=== PATIENT | male | born 2000 | race Caucasian/White ===

== ENCOUNTER 2023-03-16 16:20 | Emergency (ER) | payer SELFPAY ==
[~2023-03-16] VITALS: Wt 95.3 kg
[2023-03-16] MEDS ORDERED: MEDROL DOSEPAK4 MG PO (19:38)
== END 2023-03-16 19:50 | disposition home or self-care (01) ==
LOC: ED 16:20
DX: H60.91 Unspecified otitis externa, right ear (principal); H61.22 Impacted cerumen, left ear; H65.92 Unspecified nonsuppurative otitis media, left ear; Z88.1 Allergy status to other antibiotic agents

== ENCOUNTER 2023-03-31 16:17 | Emergency (ER) | payer SELFPAY ==
[~2023-03-31] VITALS: Ht 200.6 cm; Wt 95.3 kg
[~2023-03-31 16:17] MED LIST: MEDROL DOSEPAK4 MG PO
== END 2023-03-31 17:21 | disposition home or self-care (01) ==
LOC: ED 16:17
DX: R56.9 Unspecified convulsions (principal); R51.9 Headache, unspecified; M54.2 Cervicalgia; Z88.1 Allergy status to other antibiotic agents

== ENCOUNTER 2024-02-29 18:08 | Emergency (ER) | payer SELFPAY ==
[~2024-02-29] VITALS: Ht 200.6 cm; Wt 95.3 kg
[2024-02-29] MEDS ORDERED: SODIUM CHLORIDE 0.9% 1,000 ML IV ONE (18:25)
[2024-02-29] MEDS ORDERED: Ketorolac Tromethamine 30 MG/ML VIAL IV ONE (18:25)
[2024-02-29] MEDS ORDERED: Ondansetron Hydrochloride 4 MG/2 ML VIAL IV ONE (18:25)
[2024-02-29 18:37] LABS: BASO % 0.4 % (0.0-1.0); EOS % 0.8 % (1.0-4.0); HEMATOCRIT 41.6 % (42.0-52.0); LYMPH # 1.6 10*3/uL (1.3-4.4); LYMPH % 32.5 % (27.0-41.0); MEAN CELL VOLUME 81.4 fl (80.0-94.0); MEAN CORPUSCULAR HGB 26.8 pg (27.0-31.0); MEAN CORPUSCULAR HGB CONC 32.9 g/dl (33.0-37.0); MEAN PLATELET VOLUME 10.6 fl (9.6-12.3); MONO # 0.3 10*3/uL (0.1-1.0); MONO % 6.5 % (3.0-9.0); NEUT % 59.6 % (47.0-73.0); PLATELET COUNT AUTOMATED 146 10*3/uL (130-400); RED BLOOD COUNT 5.11 10*6/uL (4.50-5.90); RED CELL DISTRI WIDTH 14.5 % (0-14.5)
[2024-02-29] MEDS ORDERED: IOHEXOL 300 MG/ML 100 ML VIAL IV ONE (18:40)
[2024-02-29 18:53] LABS: ALKALINE PHOSPHATASE 75 U/L (46-116); BUN 13 mg/dl (9-23); CHLORIDE 107 mmol/L (98-107); LIPASE 30 U/L (12-53); POTASSIUM 3.9 mmol/L (3.4-5.1); SGPT/ALT 20 U/L (5-49); TOTAL PROTEIN 6.9 gm/dL (6.0-8.0)
== END 2024-02-29 20:48 | disposition home or self-care (01) ==
LOC: ED 18:08
PROVIDERS: Physician Assistant Medical
DX: R10.9 Unspecified abdominal pain (principal); K62.5 Hemorrhage of anus and rectum; R42 Dizziness and giddiness; Z88.1 Allergy status to other antibiotic agents

== ENCOUNTER 2024-04-06 21:03 | Emergency (ER) | payer OTHER ==
[~2024-04-06] VITALS: Ht 203.2 cm; Wt 93.0 kg
[2024-04-06] MEDS ORDERED: SODIUM CHLORIDE 0.9% 1,000 ML IV ONE ×2 (21:10→22:55)
[2024-04-06 21:21] LABS: BASO % 0.3 % (0.0-1.0); EOS % 0.4 % (1.0-4.0); HEMATOCRIT 40.9 % (42.0-52.0); LYMPH # 2.4 10*3/uL (1.3-4.4); LYMPH % 36.1 % (27.0-41.0); MEAN CELL VOLUME 82.6 fl (80.0-94.0); MEAN CORPUSCULAR HGB 26.9 pg (27.0-31.0); MEAN CORPUSCULAR HGB CONC 32.5 g/dl (33.0-37.0); MEAN PLATELET VOLUME 10.7 fl (9.6-12.3); MONO # 0.4 10*3/uL (0.1-1.0); MONO % 5.5 % (3.0-9.0); NEUT # 3.9 10*3/uL (2.3-7.9); NEUT % 57.4 % (47.0-73.0); PLATELET COUNT AUTOMATED 160 10*3/uL (130-400); RED BLOOD COUNT 4.95 10*6/uL (4.50-5.90); RED CELL DISTRI WIDTH 14.7 % (0-14.5); WHITE BLOOD COUNT 6.7 10*3/uL (4.8-10.8)
[2024-04-06] MEDS ORDERED: Ondansetron Hydrochloride 4 MG/2 ML VIAL IV ONE (21:35)
[2024-04-06 21:43] LABS: ALKALINE PHOSPHATASE 72 U/L (46-116); BUN 11 mg/dl (9-23); CHLORIDE 108 mmol/L (98-107); LIPASE 25 U/L (12-53); POTASSIUM 3.5 mmol/L (3.4-5.1); SGPT/ALT 51 U/L (5-49)
[2024-04-06] MEDS ORDERED: CIPROFLOXACIN 200 ML IV ONE (22:55)
[2024-04-06] MEDS ORDERED: METRONIDAZOLE 100 ML IV ONE (22:55)
[2024-04-07 00:27] LABS: BILIRUBIN Negative (Negative); BLOOD Negative (Negative); CLARITY Clear (Clear); COLOR Yellow (Yellow); GLUCOSE Negative (Negative); KETONE Trace (Negative); LEUKO ESTERASE Negative (Negative); NITRITE Negative (Negative); PH 6.5 (4.5-8.0)
[2024-04-07 00:35] LABS: URINE AMPHETAMINES Negative (1000ng/ml); URINE BARBITURATES Negative (200ng/ml); URINE BENZODIAZEPINES Negative (200ng/ml); URINE CANNABINOIDS (THC) Positive (50ng/ml); URINE COCAINE Negative (300ng/ml); URINE METHADONE Negative (300ng/ml); URINE OPIATES Negative (300ng/ml); URINE PHENCYCLIDINE Negative (25ng/ml)
[2024-04-07 00:45] LABS: MUCOUS 1+
[2024-04-07] MEDS ORDERED: SODIUM CHLORIDE 0.9% 1,000 ML IV ONE (01:00)
== END 2024-04-07 01:42 | disposition short-term general hospital (02) ==
LOC: ED 21:03
PROVIDERS: Internal Medicine
DX: K63.1 Perforation of intestine (nontraumatic) (principal); R79.89 Other specified abnormal findings of blood chemistry; Z88.1 Allergy status to other antibiotic agents

== ENCOUNTER 2024-04-18 18:34 | Emergency (ER) | payer OTHER ==
[~2024-04-18] VITALS: Ht 203.2 cm; Wt 95.3 kg
[2024-04-18] MEDS ORDERED: Ondansetron Hydrochloride 4 MG/2 ML VIAL IV ONE (19:15)
[2024-04-18] MEDS ORDERED: methylPREDNISolone sod succ 125 MG VIAL IV ONE (19:15)
[2024-04-18] MEDS ORDERED: HYDROmorphONE Hydrochloride 1 MG/ML SYR IV ONE (19:15)
[2024-04-18 19:23] LABS: BASO % 0.4 % (0.0-1.0); EOS % 0.8 % (1.0-4.0); HEMATOCRIT 40.4 % (42.0-52.0); LYMPH # 1.6 10*3/uL (1.3-4.4); LYMPH % 32.9 % (27.0-41.0); MEAN CELL VOLUME 82.8 fl (80.0-94.0); MEAN CORPUSCULAR HGB 26.8 pg (27.0-31.0); MEAN CORPUSCULAR HGB CONC 32.4 g/dl (33.0-37.0); MEAN PLATELET VOLUME 10.7 fl (9.6-12.3); MONO # 0.4 10*3/uL (0.1-1.0); MONO % 7.4 % (3.0-9.0); NEUT # 2.9 10*3/uL (2.3-7.9); NEUT % 58.3 % (47.0-73.0); PLATELET COUNT AUTOMATED 148 10*3/uL (130-400); RED BLOOD COUNT 4.88 10*6/uL (4.50-5.90); RED CELL DISTRI WIDTH 14.8 % (0-14.5)
[2024-04-18 19:44] LABS: ALKALINE PHOSPHATASE 72 U/L (46-116); BUN 8 mg/dl (9-23); CHLORIDE 107 mmol/L (98-107); LIPASE 30 U/L (12-53); POTASSIUM 3.9 mmol/L (3.4-5.1); SGPT/ALT 41 U/L (5-49); TOTAL PROTEIN 6.6 gm/dL (6.0-8.0)
[2024-04-18] MEDS ORDERED: PREDNISONE20 M1 PO (20:33)
== END 2024-04-18 20:39 | disposition home or self-care (01) ==
LOC: ED 18:34
PROVIDERS: Internal Medicine
DX: K50.90 Crohn's disease, unspecified, without complications (principal); Z88.1 Allergy status to other antibiotic agents; Z87.891 Personal history of nicotine dependence

== ENCOUNTER 2024-05-02 20:47 | Emergency (ER) | payer OTHER ==
[~2024-05-02 20:47] MED LIST changes: +PREDNISONE20 M1 PO
[2024-05-02] MEDS ORDERED: SODIUM CHLORIDE 0.9% 1,000 ML IV ONE (21:25)
[2024-05-02] MEDS ORDERED: HYDROmorphONE Hydrochloride 1 MG/ML SYR IV ONE (21:25)
[2024-05-02] MEDS ORDERED: Ondansetron Hydrochloride 4 MG/2 ML VIAL IV ONE (21:30)
[2024-05-02] MEDS ORDERED: Pantoprazole Sodium 40 MG VIAL IV ONE (21:30)
[2024-05-02 21:45] LABS: BASO % 0.4 % (0.0-1.0); EOS % 0.8 % (1.0-4.0); HEMATOCRIT 42.7 % (42.0-52.0); LYMPH # 1.9 10*3/uL (1.3-4.4); LYMPH % 36.5 % (27.0-41.0); MEAN CELL VOLUME 82.9 fl (80.0-94.0); MEAN CORPUSCULAR HGB 26.4 pg (27.0-31.0); MEAN CORPUSCULAR HGB CONC 31.9 g/dl (33.0-37.0); MEAN PLATELET VOLUME 10.3 fl (9.6-12.3); MONO # 0.4 10*3/uL (0.1-1.0); MONO % 7.9 % (3.0-9.0); NEUT # 2.9 10*3/uL (2.3-7.9); NEUT % 54.2 % (47.0-73.0); PLATELET COUNT AUTOMATED 157 10*3/uL (130-400); RED BLOOD COUNT 5.15 10*6/uL (4.50-5.90); RED CELL DISTRI WIDTH 14.7 % (0-14.5); WHITE BLOOD COUNT 5.3 10*3/uL (4.8-10.8)
[2024-05-02 21:57] LABS: ACT PARTIAL THROMBO TIME 28.1 SECONDS (20.0-32.1)
[2024-05-02 22:07] LABS: CPK 102 U/L (34-171)
[2024-05-02 22:08] LABS: ALKALINE PHOSPHATASE 75 U/L (46-116); BUN 15 mg/dl (9-23); CHLORIDE 107 mmol/L (98-107); LDH 129 U/L (120-246); LIPASE 35 U/L (12-53); POTASSIUM 3.8 mmol/L (3.4-5.1); SGPT/ALT 28 U/L (5-49); TOTAL PROTEIN 6.4 gm/dL (6.0-8.0)
[2024-05-02 22:12] LABS: ETHYL ALCOHOL < 3.0 mg/dl (<3)
[2024-05-02] MEDS ORDERED: SODIUM CHLORIDE 0.9% 10 ML SYR IV SCH (22:30)
[2024-05-02] MEDS ORDERED: IOHEXOL 300 MG/ML 100 ML VIAL IV ONE (22:30)
[2024-05-02] MEDS ORDERED: IOHEXOL 300 MG/ML 100 ML VIAL ONE (22:44)
[2024-05-03] MEDS ORDERED: HYDROmorphONE Hydrochloride 1 MG/ML SYR IV ONE (00:45)
[2024-05-03] MEDS ORDERED: Ondansetron4 MG PO (01:21)
[2024-05-03] MEDS ORDERED: PROTONIX40 MG PO (01:21)
== END 2024-05-03 01:18 | disposition home or self-care (01) ==
LOC: ED 20:47
PROVIDERS: Emergency Medicine
DX: K52.9 Noninfective gastroenteritis and colitis, unspecified (principal); K50.918 Crohn's disease, unspecified, with other complication; K92.2 Gastrointestinal hemorrhage, unspecified; R11.10 Vomiting, unspecified; Z88.1 Allergy status to other antibiotic agents; Z79.899 Other long term (current) drug therapy

== ENCOUNTER 2024-05-23 17:00 | Emergency (ER) | payer OTHER ==
[~2024-05-23] VITALS: Ht 203.2 cm; Wt 95.3 kg
[~2024-05-23 17:00] MED LIST changes: +Ondansetron4 MG PO; +PROTONIX40 MG PO
[2024-05-23] MEDS ORDERED: HYDROCODONE-AC1 EAC1 PO (17:20)
== END 2024-05-23 17:34 | disposition home or self-care (01) ==
LOC: ED 17:00
DX: K50.90 Crohn's disease, unspecified, without complications (principal); Z88.1 Allergy status to other antibiotic agents

== ENCOUNTER 2024-06-28 21:14 | Emergency (ER) | payer OTHER ==
[~2024-06-28] VITALS: Ht 195.5 cm; Wt 83.9 kg
[~2024-06-28 21:14] MED LIST changes: +HYDROCODONE-AC1 EAC1 PO
[2024-06-28] MEDS ORDERED: MEPERIDINE HYDROCHLORIDE 25 MG/1 ML VIAL IM ONE (22:20)
[2024-06-28] MEDS ORDERED: Promethazine Hydrochloride 25 MG/ML VIAL IM ONE (22:20)
[2024-06-28] MEDS ORDERED: methylPREDNISolone sod succ 125 MG VIAL IM ONE (22:20)
[2024-06-28 22:36] LABS: BASO % 0.1 % (0.0-1.0); EOS % 0.6 % (1.0-4.0); HEMATOCRIT 38.3 % (42.0-52.0); LYMPH # 1.9 10*3/uL (1.3-4.4); MEAN CELL VOLUME 82.7 fl (80.0-94.0); MEAN CORPUSCULAR HGB CONC 32.6 g/dl (33.0-37.0); MEAN PLATELET VOLUME 11.1 fl (9.6-12.3); MONO # 0.5 10*3/uL (0.1-1.0); MONO % 6.4 % (3.0-9.0); NEUT # 4.6 10*3/uL (2.3-7.9); NEUT % 65.6 % (47.0-73.0); PLATELET COUNT AUTOMATED 153 10*3/uL (130-400); RED BLOOD COUNT 4.63 10*6/uL (4.50-5.90); RED CELL DISTRI WIDTH 14.4 % (0-14.5); WHITE BLOOD COUNT 7.1 10*3/uL (4.8-10.8)
[2024-06-28 22:53] LABS: ALKALINE PHOSPHATASE 70 U/L (46-116); BUN 18 mg/dl (9-23); CHLORIDE 104 mmol/L (98-107); LIPASE 28 U/L (12-53); POTASSIUM 3.6 mmol/L (3.4-5.1); SGPT/ALT 53 U/L (5-49); TOTAL PROTEIN 6.3 gm/dL (6.0-8.0)
== END 2024-06-28 23:42 | disposition home or self-care (01) ==
LOC: ED 21:14
PROVIDERS: Internal Medicine
DX: K50.90 Crohn's disease, unspecified, without complications (principal); R79.89 Other specified abnormal findings of blood chemistry; Z88.1 Allergy status to other antibiotic agents

== ENCOUNTER 2024-07-14 21:25 | Emergency (ER) | payer OTHER ==
[~2024-07-14] VITALS: Ht 187.9 cm; Wt 95.3 kg
[2024-07-14] MEDS ORDERED: CLINDAMYCIN HC300 MG PO (22:06)
[2024-07-14] MEDS ORDERED: NAPROSYN500 MG PO (22:06)
[2024-07-14] MEDS ORDERED: Lidocaine Hydrochloride 15 ML UDC PO STA (22:08)
[2024-07-14] MEDS ORDERED: BENZOCAINE 20% 11.9 GM GEL T STA (22:08)
[2024-07-14] MEDS ORDERED: CLINDAMYCIN HCL 300 MG CAPSULE PO ONE (22:10)
[2024-07-14] MEDS ORDERED: Ketorolac Tromethamine 60 MG/2 ML VIAL IM ONE (22:10)
== END 2024-07-14 22:31 | disposition home or self-care (01) ==
LOC: ED 21:25
DX: K04.7 Periapical abscess without sinus (principal); Z88.1 Allergy status to other antibiotic agents

== ENCOUNTER 2024-07-16 15:25 | Emergency (ER) | payer OTHER ==
[~2024-07-16] VITALS: Ht 200.6 cm; Wt 95.3 kg
[~2024-07-16 15:25] MED LIST changes: +CLINDAMYCIN HC300 MG PO; +NAPROSYN500 MG PO
[2024-07-16] MEDS ORDERED: Acetaminophen/Hydrocodone 5 MG/325 MG TABLET PO ONE (15:55)
[2024-07-16] MEDS ORDERED: IOHEXOL 300 MG/ML 100 ML VIAL IV ONE (16:00)
[2024-07-16 16:25] LABS: BASO % 0.1 % (0.0-1.0); EOS % 0.4 % (1.0-4.0); HEMATOCRIT 39.5 % (42.0-52.0); MEAN CELL VOLUME 82.8 fl (80.0-94.0); MEAN CORPUSCULAR HGB 26.8 pg (27.0-31.0); MEAN CORPUSCULAR HGB CONC 32.4 g/dl (33.0-37.0); MEAN PLATELET VOLUME 10.4 fl (9.6-12.3); MONO # 0.6 10*3/uL (0.1-1.0); MONO % 8.1 % (3.0-9.0); NEUT # 5.5 10*3/uL (2.3-7.9); NEUT % 75.1 % (47.0-73.0); PLATELET COUNT AUTOMATED 156 10*3/uL (130-400); RED BLOOD COUNT 4.77 10*6/uL (4.50-5.90); RED CELL DISTRI WIDTH 14.2 % (0-14.5); WHITE BLOOD COUNT 7.3 10*3/uL (4.8-10.8)
[2024-07-16] MEDS ORDERED: BENZOCAINE 20% 11.9 GM GEL T STA (16:33)
[2024-07-16] MEDS ORDERED: Lidocaine Hydrochloride 15 ML UDC PO STA (16:33)
[2024-07-16 16:46] LABS: BUN 10 mg/dl (9-23); CHLORIDE 106 mmol/L (98-107); POTASSIUM 3.7 mmol/L (3.4-5.1)
[2024-07-16] MEDS ORDERED: Ketorolac Tromethamine 30 MG/ML VIAL IV ONE (18:00)
[2024-07-16] MEDS ORDERED: Clindamycin Phosphate 50 ML IV ONE (18:45)
== END 2024-07-16 19:31 | disposition home or self-care (01) ==
LOC: ED 15:25
PROVIDERS: Physician Assistant Medical
DX: K04.7 Periapical abscess without sinus (principal); F19.10 Other psychoactive substance abuse, uncomplicated; R22.0 Localized swelling, mass and lump, head; Z88.1 Allergy status to other antibiotic agents

== ENCOUNTER 2024-08-10 11:59 | Emergency (ER) | payer OTHER ==
[~2024-08-10] VITALS: Ht 200.6 cm; Wt 90.7 kg
[2024-08-10] MEDS ORDERED: fentaNYL CITRATE 100 MCG/2 ML VIAL IV ONE (12:30)
[2024-08-10] MEDS ORDERED: Pantoprazole Sodium 40 MG VIAL IV ONE (12:30)
[2024-08-10] MEDS ORDERED: Ondansetron Hydrochloride 4 MG/2 ML VIAL IV ONE (12:30)
[2024-08-10] MEDS ORDERED: SODIUM CHLORIDE 0.9% 1,000 ML IV ONE (12:30)
[2024-08-10 12:44] LABS: BASO % 0.2 % (0.0-1.0); EOS % 0.4 % (1.0-4.0); HEMATOCRIT 42.6 % (42.0-52.0); MEAN CELL VOLUME 81.9 fl (80.0-94.0); MEAN CORPUSCULAR HGB 26.3 pg (27.0-31.0); MEAN CORPUSCULAR HGB CONC 32.2 g/dl (33.0-37.0); MEAN PLATELET VOLUME 10.1 fl (9.6-12.3); MONO # 0.3 10*3/uL (0.1-1.0); MONO % 5.6 % (3.0-9.0); NEUT # 3.3 10*3/uL (2.3-7.9); NEUT % 67.5 % (47.0-73.0); PLATELET COUNT AUTOMATED 168 10*3/uL (130-400); RED CELL DISTRI WIDTH 14.2 % (0-14.5); WHITE BLOOD COUNT 4.8 10*3/uL (4.8-10.8)
[2024-08-10 12:59] LABS: ALKALINE PHOSPHATASE 89 U/L (46-116); BUN 11 mg/dl (9-23); CHLORIDE 105 mmol/L (98-107); LIPASE 31 U/L (12-53); POTASSIUM 3.9 mmol/L (3.4-5.1); SGPT/ALT 23 U/L (5-49); TOTAL PROTEIN 7.6 gm/dL (6.0-8.0)
[2024-08-10] MEDS ORDERED: IOHEXOL 300 MG/ML 100 ML VIAL IV ONE (13:25)
[2024-08-10] MEDS ORDERED: PREDNISONE20 M1 PO (14:39)
[2024-08-10] MEDS ORDERED: methylPREDNISolone sod succ 125 MG VIAL IV ONE (14:40)
== END 2024-08-10 14:50 | disposition home or self-care (01) ==
LOC: ED 11:59
PROVIDERS: Nurse Practitioner Family
DX: K50.90 Crohn's disease, unspecified, without complications (principal); Z88.1 Allergy status to other antibiotic agents; Z79.899 Other long term (current) drug therapy; G40.909 Epilepsy, unspecified, not intractable, without status epilepticus

== ENCOUNTER 2024-10-19 02:31 | Emergency (ER) | payer OTHER ==
[~2024-10-19] VITALS: Ht 200.6 cm; Wt 87.1 kg
[2024-10-19 03:08] LABS: BASO % 0.2 % (0.0-1.0); EOS # 0.1 10*3/uL (0.0-0.4); HEMATOCRIT 42.1 % (42.0-52.0); MEAN CELL VOLUME 82.2 fl (80.0-94.0); MEAN CORPUSCULAR HGB 26.6 pg (27.0-31.0); MEAN CORPUSCULAR HGB CONC 32.3 g/dl (33.0-37.0); MEAN PLATELET VOLUME 10.6 fl (9.6-12.3); MONO # 0.4 10*3/uL (0.1-1.0); MONO % 8.3 % (3.0-9.0); NEUT # 2.3 10*3/uL (2.3-7.9); NEUT % 45.6 % (47.0-73.0); PLATELET COUNT AUTOMATED 164 10*3/uL (130-400); RED BLOOD COUNT 5.12 10*6/uL (4.50-5.90); RED CELL DISTRI WIDTH 14.1 % (0-14.5); WHITE BLOOD COUNT 5.1 10*3/uL (4.8-10.8)
[2024-10-19 03:29] LABS: ALKALINE PHOSPHATASE 72 U/L (46-116); BUN 15 mg/dl (9-23); CHLORIDE 104 mmol/L (98-107); LIPASE 37 U/L (12-53); POTASSIUM 4.2 mmol/L (3.4-5.1); SGPT/ALT 27 U/L (5-49); TOTAL PROTEIN 6.8 gm/dL (6.0-8.0)
[2024-10-19] MEDS ORDERED: HYDROmorphONE Hydrochloride 0.5 MG/0.5 ML SYRINGE IV ONE (03:35)
[2024-10-19] MEDS ORDERED: Ondansetron Hydrochloride 4 MG/2 ML VIAL IV ONE (03:35)
[2024-10-19] MEDS ORDERED: methylPREDNISolone sod succ 125 MG VIAL IV ONE (05:15)
== END 2024-10-19 06:19 | disposition home or self-care (01) ==
LOC: ED 02:31
PROVIDERS: Internal Medicine
DX: K50.90 Crohn's disease, unspecified, without complications (principal); K92.1 Melena; R11.2 Nausea with vomiting, unspecified; Z88.1 Allergy status to other antibiotic agents

== ENCOUNTER 2024-11-29 11:49 | Emergency (ER) | payer OTHER ==
[~2024-11-29] VITALS: Ht 203.2 cm; Wt 92.6 kg
[2024-11-29] MEDS ORDERED: AVPAK AZITHROM250 M1 PO (12:33)
[2024-11-29] MEDS ORDERED: AZITHROMYCIN 250 MG TAB PO ONE (12:35)
[2024-11-29] MEDS ORDERED: methylPREDNISolone sod succ 125 MG VIAL IM ONE (12:35)
== END 2024-11-29 13:15 | disposition home or self-care (01) ==
LOC: ED 11:49
DX: J20.9 Acute bronchitis, unspecified (principal); K50.90 Crohn's disease, unspecified, without complications; Z79.899 Other long term (current) drug therapy; Z88.0 Allergy status to penicillin

== ENCOUNTER 2024-12-01 08:34 | Emergency (ER) | payer OTHER ==
[~2024-12-01] VITALS: Ht 203.2 cm; Wt 95.3 kg
[~2024-12-01 08:34] MED LIST changes: +AVPAK AZITHROM250 M1 PO
[2024-12-01] MEDS ORDERED: Ondansetron Hydrochloride 4 MG/2 ML VIAL IV ONE (08:50)
[2024-12-01] MEDS ORDERED: SODIUM CHLORIDE 0.9% 1,000 ML IV ONE (08:50)
[2024-12-01] MEDS ORDERED: MORPHINE Sulfate 2 MG/ML SYR IV ONE (08:50)
[2024-12-01] MEDS ORDERED: methylPREDNISolone sod succ 125 MG VIAL IV ONE (08:50)
[2024-12-01 09:05] LABS: BASO % 0.2 % (0.0-1.0); EOS % 0.5 % (1.0-4.0); HEMATOCRIT 39.2 % (42.0-52.0); MEAN CELL VOLUME 80.8 fl (80.0-94.0); MEAN CORPUSCULAR HGB 26.8 pg (27.0-31.0); MEAN CORPUSCULAR HGB CONC 33.2 g/dl (33.0-37.0); MEAN PLATELET VOLUME 10.4 fl (9.6-12.3); MONO # 0.6 10*3/uL (0.1-1.0); MONO % 8.6 % (3.0-9.0); PLATELET COUNT AUTOMATED 141 10*3/uL (130-400); RED BLOOD COUNT 4.85 10*6/uL (4.50-5.90); RED CELL DISTRI WIDTH 14.2 % (0-14.5); WHITE BLOOD COUNT 6.4 10*3/uL (4.8-10.8)
[2024-12-01] MEDS ORDERED: IOHEXOL 300 MG/ML 100 ML VIAL IV ONE (09:25)
[2024-12-01 09:26] LABS: BUN 24 mg/dl (9-23); CHLORIDE 106 mmol/L (98-107); POTASSIUM 3.5 mmol/L (3.4-5.1)
[2024-12-01] MEDS ORDERED: PREDNISONE10 M1 PO (12:32)
== END 2024-12-01 12:37 | disposition home or self-care (01) ==
LOC: ED 08:34
PROVIDERS: Emergency Medicine
DX: K50.90 Crohn's disease, unspecified, without complications (principal); R11.2 Nausea with vomiting, unspecified; G40.909 Epilepsy, unspecified, not intractable, without status epilepticus; Z88.1 Allergy status to other antibiotic agents

== ENCOUNTER 2025-02-06 06:09 | Emergency (ER) | payer OTHER ==
[~2025-02-06] VITALS: Ht 203.2 cm; Wt 77.1 kg
[~2025-02-06 06:09] MED LIST changes: +PREDNISONE10 M1 PO
[2025-02-06] MEDS ORDERED: methylPREDNISolone sod succ 125 MG VIAL IV ONE (06:25)
[2025-02-06] MEDS ORDERED: SODIUM CHLORIDE 0.9% 1,000 ML IV ONE (06:25)
[2025-02-06] MEDS ORDERED: HYDROmorphone Hydrochloride 1 MG/ML SYR IV ONE ×2 (06:25→07:35)
[2025-02-06] MEDS ORDERED: Ondansetron Hydrochloride 4 MG/2 ML VIAL IV ONE (06:25)
[2025-02-06 06:44] LABS: BASO % 0.5 % (0.0-1.0); EOS % 0.9 % (1.0-4.0); HEMATOCRIT 41.9 % (42.0-52.0); MEAN CELL VOLUME 79.4 fl (80.0-94.0); MEAN CORPUSCULAR HGB 26.3 pg (27.0-31.0); MEAN CORPUSCULAR HGB CONC 33.2 g/dl (33.0-37.0); MEAN PLATELET VOLUME 10.9 fl (9.6-12.3); MONO # 0.4 10*3/uL (0.1-1.0); MONO % 8.4 % (3.0-9.0); NEUT # 2.1 10*3/uL (2.3-7.9); NEUT % 47.6 % (47.0-73.0); PLATELET COUNT AUTOMATED 149 10*3/uL (130-400); RED BLOOD COUNT 5.28 10*6/uL (4.50-5.90); RED CELL DISTRI WIDTH 14.6 % (0-14.5); WHITE BLOOD COUNT 4.4 10*3/uL (4.8-10.8)
[2025-02-06 06:55] LABS: ALKALINE PHOSPHATASE 73 U/L (46-116); BUN 14 mg/dl (9-23); CHLORIDE 106 mmol/L (98-107); LIPASE 31 U/L (12-53); POTASSIUM 3.8 mmol/L (3.4-5.1); SGPT/ALT 22 U/L (5-49); TOTAL PROTEIN 7.1 gm/dL (6.0-8.0)
[2025-02-06] MEDS ORDERED: Pantoprazole Sodium 40 MG VIAL IV ONE (07:35)
[2025-02-06] MEDS ORDERED: Pantoprazole Sodium 40 MG IV ONE (07:35)
[2025-02-06] MEDS ORDERED: PROTONIX40 MG PO (08:17)
[2025-02-06] MEDS ORDERED: ANUSOL-HC25 MG R (08:17)
[2025-02-06] MEDS ORDERED: ENDOCET 5-3251 EACH PO (08:17)
== END 2025-02-06 08:37 | disposition home or self-care (01) ==
LOC: ED 06:09
PROVIDERS: Internal Medicine
DX: K64.9 Unspecified hemorrhoids (principal); K29.70 Gastritis, unspecified, without bleeding; R11.2 Nausea with vomiting, unspecified; R42 Dizziness and giddiness; R19.7 Diarrhea, unspecified; Z88.1 Allergy status to other antibiotic agents; Z79.899 Other long term (current) drug therapy

== ENCOUNTER 2025-03-22 06:11 | Emergency (ER) | payer OTHER ==
[~2025-03-22 06:11] MED LIST changes: +ANUSOL-HC25 MG R; +ENDOCET 5-3251 EACH PO
[2025-03-22 06:46] LABS: BASO # 0.0 10*3/uL (0.0-0.1); BASO % 0.2 % (0.0-1.0); EOS # 0.1 10*3/uL (0.0-0.4); EOS % 1.0 % (1.0-4.0); MEAN CELL VOLUME 84.8 fl (80.0-94.0); MEAN CORPUSCULAR HGB 26.6 pg (27.0-31.0); MEAN PLATELET VOLUME 10.9 fl (9.6-12.3); MONO # 0.3 10*3/uL (0.1-1.0); MONO % 6.6 % (3.0-9.0); NEUT # 2.3 10*3/uL (2.3-7.9); NEUT % 44.8 % (47.0-73.0); NUCLEATED RED BLOOD CELL 0.0 % (0.0-0.0); NUCLEATED RED BLOOD CELL 0.0 10*3/uL (0.0-0.0); PLATELET COUNT AUTOMATED 159 10*3/uL (130-400); RED CELL DISTRI WIDTH 14.6 % (0-14.5)
[2025-03-22] MEDS ORDERED: Ondansetron Hydrochloride 4 MG TAB SL ONE (06:55)
[2025-03-22] MEDS ORDERED: Acetaminophen/Hydrocodone 5 MG/325 MG TABLET PO ONE (06:55)
[2025-03-22 07:18] LABS: BUN 14 mg/dl (9-23)
[2025-03-22] MEDS ORDERED: SODIUM CHLORIDE 0.9% 1,000 ML IV ONE (07:55)
[2025-03-22] MEDS ORDERED: METHOCARBAMOL 500 MG TAB PO ONE (07:55)
[2025-03-22] MEDS ORDERED: NAPROSYN500 MG PO (09:32)
[2025-03-22] MEDS ORDERED: METHOCARBAMOL500 M1 PO (09:32)
== END 2025-03-22 09:39 | disposition home or self-care (01) ==
LOC: ED 06:11
PROVIDERS: Internal Medicine
DX: M25.511 Pain in right shoulder (principal); R51.9 Headache, unspecified; Z79.899 Other long term (current) drug therapy; Z88.1 Allergy status to other antibiotic agents; W18.39XA Other fall on same level, initial encounter; Y93.89 Activity, other specified; Y92.89 Other specified places as the place of occurrence of the external cause; Y99.8 Other external cause status

== ENCOUNTER → 2025-03-27 | Outpatient (CLI) | payer OTHER ==
[~2025-03-27] MED LIST changes: +METHOCARBAMOL500 M1 PO
== END | disposition home or self-care (01) ==
LOC: RESCLI 08:44
PROVIDERS: ATTEND Internal Medicine
DX: K50.90 Crohn's disease, unspecified, without complications (principal); I95.1 Orthostatic hypotension; F44.5 Conversion disorder with seizures or convulsions

== ENCOUNTER 2025-04-18 06:47 | Emergency (ER) | payer OTHER ==
[~2025-04-18] VITALS: Ht 203.2 cm; Wt 95.3 kg
[2025-04-18] MEDS ORDERED: HYDROmorphONE Hydrochloride 0.5 MG/0.5 ML SYRINGE IV ONE ×2 (07:40→09:30)
[2025-04-18] MEDS ORDERED: SODIUM CHLORIDE 0.9% 500 ML IV ONE (07:40)
[2025-04-18] MEDS ORDERED: Ondansetron Hydrochloride 4 MG/2 ML VIAL IV ONE ×2 (07:40→09:30)
[2025-04-18 08:01] LABS: MEAN CELL VOLUME 82.2 fl (80.0-94.0); MEAN CORPUSCULAR HGB 27.0 pg (27.0-31.0); MEAN PLATELET VOLUME 10.5 fl (9.6-12.3); NUCLEATED RED BLOOD CELL 0.0 % (0.0-0.0); NUCLEATED RED BLOOD CELL 0.0 10*3/uL (0.0-0.0); PLATELET COUNT AUTOMATED 111 10*3/uL (130-400); RED CELL DISTRI WIDTH 14.5 % (0-14.5)
[2025-04-18 08:23] LABS: BUN 12 mg/dl (9-23); SGPT/ALT 29 U/L (5-49)
[2025-04-18 08:46] LABS: MANUAL DIFF REFLEX YES
[2025-04-18 08:49] LABS: PLATELET SUFFICIENCY LOW (NORMAL)
[2025-04-18] MEDS ORDERED: TRAMADOL HCL50 MG PO (09:33)
[2025-04-18] MEDS ORDERED: PREDNISONE20 M1 PO (09:33)
[2025-04-18] MEDS ORDERED: Ondansetron4 MG PO (09:33)
== END 2025-04-18 09:57 | disposition home or self-care (01) ==
LOC: ED 06:47
PROVIDERS: Emergency Medicine
DX: K50.90 Crohn's disease, unspecified, without complications (principal); R11.2 Nausea with vomiting, unspecified; Z88.1 Allergy status to other antibiotic agents; Z79.899 Other long term (current) drug therapy

== ENCOUNTER 2025-07-05 23:05 | Emergency (ER) | payer SELFPAY ==
[~2025-07-05] VITALS: Ht 198.1 cm; Wt 95.3 kg
[~2025-07-05 23:05] MED LIST changes: +TRAMADOL HCL50 MG PO
[2025-07-05] MEDS ORDERED: Ondansetron Hydrochloride 4 MG/2 ML VIAL IV ONE (23:25)
[2025-07-05] MEDS ORDERED: SODIUM CHLORIDE 0.9% 1,000 ML IV ONE (23:25)
[2025-07-05] MEDS ORDERED: IOHEXOL 300 MG/ML 100 ML VIAL IV ONE (23:40)
[2025-07-05 23:43] LABS: BASO # 0.0 10*3/uL (0.0-0.1); BASO % 0.2 % (0.0-1.0); EOS # 0.1 10*3/uL (0.0-0.4); EOS % 0.8 % (1.0-4.0); MEAN CELL VOLUME 81.2 fl (80.0-94.0); MEAN CORPUSCULAR HGB 26.8 pg (27.0-31.0); MEAN PLATELET VOLUME 10.6 fl (9.6-12.3); MONO # 0.4 10*3/uL (0.1-1.0); MONO % 6.1 % (3.0-9.0); NEUT # 3.3 10*3/uL (2.3-7.9); NEUT % 54.7 % (47.0-73.0); NUCLEATED RED BLOOD CELL 0.0 % (0.0-0.0); NUCLEATED RED BLOOD CELL 0.0 10*3/uL (0.0-0.0); PLATELET COUNT AUTOMATED 134 10*3/uL (130-400); RED CELL DISTRI WIDTH 14.5 % (0-14.5)
[2025-07-06 00:03] LABS: BUN 14 mg/dl (9-23); SGPT/ALT 18 U/L (5-49)
[2025-07-06] MEDS ORDERED: PROTONIX40 MG PO (01:46)
[2025-07-06] MEDS ORDERED: CARAFATE1 G1 PO (01:46)
[2025-07-06] MEDS ORDERED: Dexamethasone Sodium Phospha 20 MG/5 ML VIAL IV ONE (01:50)
== END 2025-07-06 02:08 | disposition home or self-care (01) ==
LOC: ED 23:05
PROVIDERS: Emergency Medicine
DX: K50.90 Crohn's disease, unspecified, without complications (principal); K29.01 Acute gastritis with bleeding; Z88.1 Allergy status to other antibiotic agents

== ENCOUNTER 2025-08-10 11:04 | Emergency (ER) | payer SELFPAY ==
[~2025-08-10] VITALS: Wt 95.3 kg
[~2025-08-10 11:04] MED LIST changes: +CARAFATE1 G1 PO
[2025-08-10] MEDS ORDERED: SODIUM CHLORIDE 0.9% 1,000 ML IV ONE (11:40)
[2025-08-10] MEDS ORDERED: Ondansetron Hydrochloride 4 MG/2 ML VIAL IV ONE (11:40)
[2025-08-10] MEDS ORDERED: IOHEXOL 300 MG/ML 100 ML VIAL IV ONE (11:45)
[2025-08-10 11:57] LABS: BASO # 0.0 10*3/uL (0.0-0.1); BASO % 0.2 % (0.0-1.0); EOS # 0.0 10*3/uL (0.0-0.4); EOS % 0.4 % (1.0-4.0); MEAN CELL VOLUME 81.9 fl (80.0-94.0); MEAN CORPUSCULAR HGB 27.0 pg (27.0-31.0); MEAN PLATELET VOLUME 10.4 fl (9.6-12.3); MONO # 0.3 10*3/uL (0.1-1.0); MONO % 6.0 % (3.0-9.0); NEUT # 3.1 10*3/uL (2.3-7.9); NEUT % 66.5 % (47.0-73.0); NUCLEATED RED BLOOD CELL 0.0 % (0.0-0.0); NUCLEATED RED BLOOD CELL 0.0 10*3/uL (0.0-0.0); PLATELET COUNT AUTOMATED 139 10*3/uL (130-400); RED CELL DISTRI WIDTH 14.6 % (0-14.5)
[2025-08-10] MEDS ORDERED: IOHEXOL 300 MG/ML 100 ML VIAL ONE (12:05)
[2025-08-10 12:21] LABS: BUN 17 mg/dl (9-23); SGPT/ALT 22 U/L (5-49)
[2025-08-10 14:34] LABS: BILIRUBIN Negative (Negative); BLOOD Negative (Negative); CLARITY Clear (Clear); COLOR Yellow (Yellow); KETONE 1+ (Negative); LEUKO ESTERASE Negative (Negative); NITRITE Negative (Negative); PH 7.5 (4.5-8.0); SPECIFIC GRAVITY >= 1.030 (1.001-1.030); UROBILINOGEN 0.2 E.U./dl (0.0-1.0)
[2025-08-10 14:46] LABS: MUCOUS 1+; WBC 0-2 wbc/hpf (0-5)
== END 2025-08-10 15:11 | disposition home or self-care (01) ==
LOC: ED 11:04
PROVIDERS: Nurse Practitioner Family
DX: R10.31 Right lower quadrant pain (principal); K21.9 Gastro-esophageal reflux disease without esophagitis; K50.90 Crohn's disease, unspecified, without complications; Z88.1 Allergy status to other antibiotic agents